=== PATIENT | female | born 2000 | race Two or more races ===

== ENCOUNTER 2024-01-18 18:34 | Emergency (ER) | payer OTHER ==
[~2024-01-18] VITALS: Ht 152.4 cm; Wt 76.0 kg
[2024-01-18 19:13] VITALS: BP 126/73; PULSE 93; RESP 16; TEMP 98.5; O2SAT 97
== END 2024-01-18 20:38 | disposition home or self-care (01) ==
LOC: ER 18:34
DX: K08.89 Other specified disorders of teeth and supporting structures (principal); R20.0 Anesthesia of skin
CPT/HCPCS: 70450; 81025